=== PATIENT | male | born 1985 | race Caucasian/White ===

== ENCOUNTER 2019-05-14 17:21 | Emergency (ER) | payer OTHER ==
[2019-05-14 20:05] VITALS: BP 123/65
[2019-05-14 20:06] LABS: Influenza B Molecular POSITIVE (Negative)
--- NOTE | 2019-05-14 20:31 | UC ---
HPI Febrile Illness - HPI Summary HPI Summary: 33-year-old male comes in with a chief complaint of fever chills body aches since May 09, 2019. He had a tick bite left upper arm noticed several days before that. He pulled the tick out he thinks it was in there for about 24 hours does not have a bull's-eye rash. Patient was at a conference on May 02, 2019 and [facility]. patient believes there were some people at the conference may have had flulike symptoms. Patient does have dry cough. He gets short of breath with activity. Tylenol helps with the fevers and symptoms. - History of Current Complaint Chief Complaint: UCGeneralIllness Time Seen by Provider: 05/14/19 19:17 Pain Intensity: 4 - Allergy/Home Medications Allergies/Adverse Reactions: Allergies Allergy/AdvReac Type Severity Reaction Status Date / Time No Known Allergies Allergy Verified 05/14/19 20:06 Home Medications: Home Medications Cholecalciferol [Vitamin D] 1,000 unit PO DAILY 08/21/15 [History Confirmed ] Lactobacillus Acidophilus [Probiotic] 1 cap PO DAILY 08/21/15 [History Confirmed 05/14/19] Enterprise-3/Dha/Epa/Fish Oil [Fish Oil] 500 mg PO DAILY 08/21/15 [History Confirmed 05/14/19] DOXYcycline CAP(*) [DOXYcycline 100MG CAP(*)] 100 mg PO BID #28 cap 05/14/19 [Rx ] PMH/Surg Hx/FS Hx/Imm Hx Previously Healthy: Yes - history of Lyme disease - Surgical History Surgical History: Yes Surgery Procedure, Year, and Place: ACL SURGERY LEFT KNEE 2012 - Family History Known Family History: Positive: Non-Contributory - Social History Alcohol Use: Occasionally Alcohol Amount: 4-5 DRINKS PER WEEK Substance Use Type: None Smoking Status (MU): Never Smoked Tobacco Review of Systems All Other Systems Reviewed And Are Negative: Yes Constitutional: Positive: Fever, Other - SEE HPI Skin: Positive: Other - SEE HPI Eyes: Positive: Negative ENT: Positive: Sore Throat Respiratory: Positive: Shortness Of Breath, Cough Cardiovascular: Positive: Negative Motor: Positive: Negative Neurovascular: Positive: Negative Musculoskeletal: Positive: Myalgia Neurological/Mental Status: Positive: Negative Psychological: Positive: Negative Is Patient Immunocompromised?: No Physical Exam Triage Information Reviewed: Yes Appearance: No Pain Distress, Well-Nourished, Ill-Appearing - MILD Vital Signs: Initial Vital Signs Temp 98.3 F 05/14/19 20:00 Pulse 83 05/14/19 20:00 Resp 16 05/14/19 20:00 BP 123/65 05/14/19 20:00 Pulse Ox 97 05/14/19 20:00 ENT: Positive: Pharyngeal erythema, TMs normal Neck: Positive: Supple Respiratory: Positive: Lungs clear, Normal breath sounds, No respiratory distress Cardiovascular: Positive: RRR Musculoskeletal: Positive: Strength Intact, ROM Intact Neurological: Positive: Alert, Muscle Tone Normal Psychological: Positive: Age Appropriate Behavior Skin: Positive: Other - Over the left triceps there is a pinpoint area of erythema with a tick bite was there is no bull's-eye rash no streaking no drainage. Course/Dx - Course Course Of Treatment: Patient is positive for influenza. He's past 48 hours to be using Tamiflu. Patient's not sure about the possibility of exposure to parvovirus therefore we are testing for coronavirus patient will be and in home isolation. Also discussed signs and symptoms of Lyme disease and I gave him prescription to treat Lyme disease if Lyme disease symptoms do occur. Patient follows primary care doctor he is to get reevaluated if worsening or any questions or concerns. - Diagnoses Provider Diagnosis: Influenza, Tick bite Discharge ED - Sign-Out/Discharge Documenting (check all that apply): Patient Departure All imaging exams completed and their final reports reviewed: No Studies - Discharge Plan Condition: Stable Disposition: HOME Prescriptions: DOXYcycline CAP(*) [DOXYcycline 100MG CAP(*)] 100 mg PO BID #28 cap Patient Education Materials: Tick Bite (ED), Influenza (ED) Referrals: Silvia Medeiros NP [Primary Care Provider] - [facility] Dept [Outside] Additional Instructions: PLACE YOURSELF IN HOME ISOLATION. [facility] DEPARTMENT WILL CONTACT YOU. CONTACT THEM TOMORROW IF YOU HAVE NOT HEARD FROM THEM. FOLLOW UP WITH YOUR DOCTOR IF NOT COMPLETELY IMPROVED. GO TO THE EMERGENCY DEPARTMENT IF NOT IMPROVED OR WORSE OR ANY QUESTIONS OR CONCERNS. - Billing Disposition and Condition Condition: STABLE Disposition: Home
--- NOTE | 2019-05-15 11:43 | UC ---
- Progress Note Progress Note: Lab called regarding pt. They have a blood sample, but no lab orders. According to Dr. Taveras's note appears this blood sample is for lyme disease testing - therefore order placed. Course/Dx - Diagnoses Provider Diagnoses: Influenza, Tick bite Discharge ED - Sign-Out/Discharge Documenting (check all that apply): Post-Discharge Follow Up All imaging exams completed and their final reports reviewed: No Studies - Discharge Plan Condition: Stable Disposition: HOME Prescriptions: DOXYcycline CAP(*) [DOXYcycline 100MG CAP(*)] 100 mg PO BID #28 cap Patient Education Materials: Tick Bite (ED), Influenza (ED) Referrals: [facility] Dept [Outside] Silvia Medeiros NP [Primary Care Provider] - Additional Instructions: PLACE YOURSELF IN HOME ISOLATION. [facility] DEPARTMENT WILL CONTACT YOU. CONTACT THEM TOMORROW IF YOU HAVE NOT HEARD FROM THEM. FOLLOW UP WITH YOUR DOCTOR IF NOT COMPLETELY IMPROVED. GO TO THE EMERGENCY DEPARTMENT IF NOT IMPROVED OR WORSE OR ANY QUESTIONS OR CONCERNS. - Billing Disposition and Condition Condition: STABLE Disposition: Home
--- NOTE | 2019-05-16 19:51 | UC ---
- Progress Note Progress Note: Lyme test negative. Recommend stopping doxy if he started. Course/Dx - Diagnoses Provider Diagnoses: Influenza, Tick bite Discharge ED - Sign-Out/Discharge Documenting (check all that apply): Post-Discharge Follow Up All imaging exams completed and their final reports reviewed: No Studies - Discharge Plan Condition: Stable Disposition: HOME Prescriptions: DOXYcycline CAP(*) [DOXYcycline 100MG CAP(*)] 100 mg PO BID #28 cap Patient Education Materials: Tick Bite (ED), Influenza (ED) Referrals: [facility] Dept [Outside] Silvia Medeiros NP [Primary Care Provider] - Additional Instructions: PLACE YOURSELF IN HOME ISOLATION. [facility] DEPARTMENT WILL CONTACT YOU. CONTACT THEM TOMORROW IF YOU HAVE NOT HEARD FROM THEM. FOLLOW UP WITH YOUR DOCTOR IF NOT COMPLETELY IMPROVED. GO TO THE EMERGENCY DEPARTMENT IF NOT IMPROVED OR WORSE OR ANY QUESTIONS OR CONCERNS. - Billing Disposition and Condition Condition: STABLE Disposition: Home
== END 2019-05-14 20:40 | disposition home or self-care (01) ==
LOC: UCEAST 17:21
DX: J11.1 Influenza due to unidentified influenza virus with other respiratory manifestations (principal); S40.862A Insect bite (nonvenomous) of left upper arm, initial encounter; W57.XXXA Bitten or stung by nonvenomous insect and other nonvenomous arthropods, initial encounter; Y92.9 Unspecified place or not applicable
CPT/HCPCS: 36415; 86618; 87651; 99212; G0463; U0002